=== PATIENT | female | born 1960 | race Two or more races ===

== ENCOUNTER → 2024-11-29 | Outpatient (CLI) | payer MEDICAID, SELFPAY ==
--- NOTE | 2024-11-29 13:01 | XR_ITS ---
Examination: Abdomen AP single view Technique: AP portable supine abdomen, single view Exam date and time: November 29, 2024, 1339 hours INDICATIONS: Epigastric pain beginning 6 months ago. FINDINGS: Moderate stool throughout the colon Mild small bowel ileus left mid abdomen No obstruction No free air IMPRESSION: Mild small bowel ileus
[2024-11-29 14:13] LABS: Collection Type, Urine Clean Catch
[2024-11-29 14:28] LABS: Basophils # (Auto) 0.0 Thou/mm3 (0.0-0.2); Basophils % (Auto) 1 % (0-2.5); Eosinophils # (Auto) 0.1 Thou/mm3 (0.0-0.5); Eosinophils % (Auto) 2 % (0-10); Hematocrit 37.0 % (36.0-46.0); Hemoglobin 12.5 g/dL (12.0-16.0); Immature Granulocytes Auto 0.02 Thou/mm3 (0.00-0.00); Lymphocytes # (Auto) 1.5 Thou/mm3 (1.0-4.8); Lymphocytes % (Auto) 27 % (10-50); Mean Corpuscular HGB Conc 33.8 g/dl (31.0-37.0); Mean Corpuscular Hemoglobin 30.4 pg (25.0-35.0); Mean Corpuscular Volume 90 fL (80-100); Monocytes # (Auto) 0.6 Thou/mm3 (0.0-0.8); Monocytes % (Auto) 11 % (0-12); Neutrophils # (Auto) 3.4 Thou/mm3 (1.8-7.7); Neutrophils % (Auto) 59 % (37-80); Nucleated Red Blood Cell # 0.00 Thou/mm3 (0.00-0.00); Nucleated Red Blood Cell % 0 /100 WBC (0); Platelet Count 209 Thou/mm3 (140-440); RDW Standard Deviation 40.6 fL (36.4-46.3); Red Blood Count 4.11 Miln/mm3 (4.00-5.20); White Blood Count 5.7 Thou/mm3 (3.6-11.0)
[2024-11-29 14:40] LABS: Bilirubin,Urine Negative (Negative); Blood,Urine Negative (Negative); Clarity,Urine Clear (Clear/Hazy); Color,Urine Yellow (Lt Yel-Yel); Glucose, Urine Negative (Negative); Ketones,Urine Negative (Negative); Leukocyte Esterase,Urine Positive (Negative); Nitrite,Urine Negative (Negative); PH,Urine 6.5 (5.0-7.0); Protein,Urine Negative (Neg - Trace); RBC,Urine 2 /hpf (0-3); Specific Gravity,Urine 1.010 (1.001-1.035); Squamous Epithelial Cell,Urine 8 /hpf (0-5); Urobilinogen,Urine Negative mg/dL (0.0-1.0); WBC,Urine 6 /hpf (0-5)
[2024-11-29 14:49] LABS: Alanine Aminotransferase 23 U/L (10-49); Albumin, Serum 4.4 gm/dL (3.4-4.8); Albumin/Globulin Ratio 2.8 (1.2-2.2); Alkaline Phosphatase 86 U/L (46-116); Amylase 51 U/L (30-118); Anion Gap 8 (7-16); Aspartate Amino Transferase 20 U/L (0-34); BUN/Creatinine Ratio 16 Ratio (12-20); Bilirubin,Total 0.5 mg/dL (0.3-1.2); Blood Urea Nitrogen 13 mg/dL (9-23); Calcium 9.7 mg/dL (8.3-10.6); Calcium (Corrected) 9.7 mg/dL (8.5-10.1); Carbon Dioxide 26.7 mMol/L (20.0-31.0); Chloride 105 mMol/L (98-107); Creatinine (Component) 0.8 mg/dL (0.6-1.3); Globulin 1.6 gm/dL (2.3-3.5); Glucose 90 mg/dL (74-106); Lipase 38 U/L (12-53); Osmolality,Calculated 279 (275-295); Potassium 3.9 mMol/L (3.4-5.1); Sodium 140 mMol/L (136-145); Total Protein 6.0 gm/dL (5.7-8.2); eGFR > 60 See Note
== END | disposition home or self-care (01) ==
PROVIDERS: PCP Specialist; Referring Provider Specialist; Visit Provider Radiology Diagnostic Radiology
DX: K56.7 Ileus, unspecified (principal); E78.9 Disorder of lipoprotein metabolism, unspecified; R14.0 Abdominal distension (gaseous); R10.13 Epigastric pain
CPT/HCPCS: 36415; 74018; 80053; 81001; 82150; 83690; 85025

== ENCOUNTER 2024-12-13 14:36 | Inpatient (IN) | payer MEDICAID, SELFPAY ==
[2024-12-13 14:51] VITALS: BP 119/75; PULSE 95; RESP 20; TEMP 36.8; O2SAT 98
--- NOTE | 2024-12-13 15:15 | XR_ITS ---
Examination: CT abdomen with intravenous contrast CT pelvis with intravenous contrast 2-D coronal reconstructions 2-D sagittal reconstructions Date and time of exam:December 13, 2024, 1900 hrs. Indications: Onset generalized abdominal pain today. CTDI: vol (mGy) 8.13 DLP: (mGycm) 471 Technique: Multiple axial sections of the abdomen and pelvis have been obtained. 64 slice high-resolution scanner used. 3 mm axial sections have been obtained, post intravenous injection 60 cc [id number] 2-D sagittal, coronal reconstructions obtained. Low dose protocols were performed. One or more of the following dose reduction techniques were used; automated exposure control, adjustment of the mA and/or KV according to patient size, use of iterative reconstruction technique. Findings: 4 mm pulmonary nodule right middle lobe Mild enlargement cardiac contour No focal liver or splenic lesion No gallstones No pancreatic mass Aorta normal size No common bile duct stones No renal or ureteral calculi, no hydronephrosis Multiple fluid distended small bowel loops especially in the pelvis No pericecal inflammatory change Normal appendix Mild free fluid in the pelvis Urinary bladder intact Absent uterus Impression: Small bowel obstruction pattern, consider Gastrografin small bowel series follow-up
--- NOTE | 2024-12-13 15:15 | EKG_ITS ---
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
--- NOTE | 2024-12-13 15:18 | PD.EDRME ---
Rapid Medical Screening Exam E Arrival date/time: 12/13/24 14:36 64-year-old female with extensive cardiac and GI history reports with complaints of epigastric abdominal pain Chief Complaint: Abdominal Pain Time Seen by Provider: 12/13/24 14:38 Vital signs: Vital Signs Temperature 98.3 F 12/13/24 14:51 Pulse Rate 95 12/13/24 14:51 Respiratory Rate 20 12/13/24 14:51 Blood Pressure 119/75 12/13/24 14:51 Pulse Oximetry (%) 98 12/13/24 14:51 Oxygen Delivery Method Room Air 12/13/24 14:51
[2024-12-13] MEDS: PROMETHAZINE INJ 25 MG/ML VIAL 12.5 MG IM (15:31)
--- NOTE | 2024-12-13 15:39 | PD.EDABDPN ---
ED Abdominal Pain RME/HPI General Chief Complaint: Abdominal Pain Stated complaint: ABD PAIN Time seen by provider: 12/13/24 14:38 Arrival date/time: 12/13/24 14:36 RME / HPI RME / HPI narrative: 64-year-old female with extensive cardiac and GI history reports with complaints of epigastric abdominal pain. Onset of symptoms since early this morning, as worsening epigastric pain, severity moderate, associated with vomiting. Patient denies any fever denies any cough denies any other complaints. Patient told me that he had a history of open heart surgery and 4 stents, 2 stents are not working according to her. Her residential property manager is Dr. Rasheed, patient's GI specialist is Dr. Alcaraz. Related Data Allergies Allergy/AdvReac Type Severity Reaction Status Date / Time No Known Allergies Allergy Verified 12/13/24 14:39 Review of Systems Review of Systems Narrative Review of Systems: Review of system reviewed and within normal limits except mentioned in HPI ED Exam Narrative Physical exam: VITAL SIGNS: Reviewed. GENERAL APPEARANCE: Alert and interactive, follows commands, no acute distress, HEAD AND FACE: Non-traumatic. ENT: PERRL, pink conjunctivitis, eyelid no trauma, Mucous membrane moist. NECK: Supple, nontender, no nuchal rigidity. CHEST: No tenderness, no crepitus, no paradoxical movement, no retractions. LUNGS: Clear, well ventilated, symmetric, no rales, no wheezing, no ronchi, no stridor, good breath sounds bilaterally. HEART: Regular rate, regular rhythm, no murmur, no gallops. ABDOMEN: Soft, positive bowel sounds, nondistended, no guarding, epigastric tenderness., no rebound, no masses, RECTAL: Deferred. GENITAL: Deferred. NEUROLOGICAL: Gross motor function intact sensory function intact, Appropriate for age. MUSCULOSKELETAL: low back nontender, full range of motion. EXTREMITIES: Nontender, full range of motion. SKIN: Color pink, dry, no rash, no lacerations, no abrasions, no contusions. LYMPHATICS: Deferred. Course Quality Measures none Orders Category Date Time Status Admit to Inpatient Status Routine Admission 12/13/24 20:07 Active Patient Condition Routine Admission 12/13/24 20:07 Ordered Aspiration precautions NOW Care 12/13/24 20:08 Active COVID-19 Screening Questionnaire NOW Care 12/13/24 19:36 Active COVID-19 Screening Questionnaire NOW Care 12/13/24 19:[address] Screening NOW Care 12/13/24 15:16 Active Decision to Admit X1 Care 12/13/24 19:41 Completed EKG (ED ONLY) *Do not use* NOW Care 12/13/24 15:15 Completed Insert NG / OG tube NOW Care 12/13/24 20:07 Active NG / OG Tube to LIS NOW Care 12/13/24 19:36 Active NPO NOW Care 12/13/24 20:08 Active Notify provider NEEDED Care 12/13/24 20:07 Active Obtain weight NOW Care 12/13/24 20:07 Active Consult to Gastroenterology Stat Cons 12/13/24 18:41 Ordered Consult to General Surgery Stat Cons 12/13/24 20:10 Ordered Diet NPO (NOW) Diet 12/13/24 20:[address] abdomen pelvis w con Stat Exams 12/13/24 15:15 Completed EKG (ED Only) Stat Exams 12/13/24 15:15 Ordered XR chest 1V Stat Exams 12/13/24 15:45 Completed Amylase Stat Lab 12/13/24 15:33 Completed CBC AM DRAW Lab 12/14/24 05:00 Ordered CBC AM DRAW Lab 12/15/24 05:00 Ordered CBC AM DRAW Lab 12/16/24 05:00 Ordered CBC AM DRAW Lab 12/17/24 05:00 Ordered CBC Stat Lab 12/13/24 15:33 Completed CMP [Comprehensive Metabolic Panel] AM DRAW Lab 12/14/24 05:00 Ordered CMP [Comprehensive Metabolic Panel] AM DRAW Lab 12/15/24 05:00 Ordered CMP [Comprehensive Metabolic Panel] AM DRAW Lab 12/16/24 05:00 Ordered CMP [Comprehensive Metabolic Panel] AM DRAW Lab 12/17/24 05:00 Ordered CMP [Comprehensive Metabolic Panel] Stat Lab 12/13/24 15:33 Completed Magnesium AM DRAW Lab 12/14/24 05:00 Ordered Magnesium AM DRAW Lab 12/15/24 05:00 Ordered Magnesium AM DRAW Lab 12/16/24 05:00 Ordered Magnesium AM DRAW Lab 12/17/24 05:00 Ordered PTT [Partial Thromboplastin Time] Stat Lab 12/13/24 15:33 Completed Phosphorous AM DRAW Lab 12/14/24 05:00 Ordered Phosphorous AM DRAW Lab 12/15/24 05:00 Ordered Phosphorous AM DRAW Lab 12/16/24 05:00 Ordered Phosphorous AM DRAW Lab 12/17/24 05:00 Ordered Troponin I Stat Lab 12/13/24 15:33 Completed UA, C/S IF [Urinalysis, C/S if Indicated] Stat Lab 12/13/24 15:51 Completed Acetaminophen Ivpb [Ofirmev Inj] Med 12/13/24 20:09 Active 1,000 mg in 100 ml IV Q6HR Acetaminophen Tab [Tylenol Tab] Med 12/13/24 20:07 Active 650 mg PO Q6H PRN Dextrose 5%-Ns [D5-Ns] 1,000 ml Med 12/13/24 20:15 Active IV 75 mls/hr Famotidine Inj [Pepcid Inj] Med 12/13/24 15:48 Discontinued 20 mg IVP X1 ONE HYDROmorphone INJ [Dilaudid Inj] Med 12/13/24 20:09 Active 1 mg IVP Q4HR PRN Heparin Inj Med 12/13/24 21:00 Active 5,000 unit SC BID Metoclopramide Inj [Reglan Inj] Med 12/13/24 15:48 Discontinued 10 mg IVP X1 ONE Morphine* Inj Med 12/13/24 20:09 Active 2 mg IVP Q4HR PRN Morphine* Inj Med 12/13/24 15:48 Discontinued 4 mg IVP X1 ONE Ondansetron Inj [Zofran Inj] Med 12/13/24 20:07 Active 4 mg IVP Q6H PRN Pantoprazole Inj [Protonix Inj] Med 12/13/24 20:15 Active 40 mg IVP QDAY Promethazine Inj [Phenergan Inj] Med 12/13/24 15:17 Discontinued 12.5 mg IM X1 ONE Code Status Routine Oth 12/13/24 20:07 Ordered Vital Signs Vital signs: Vital Signs Temperature 98.3 F 12/13/24 14:51 Pulse Rate 95 12/13/24 14:51 Respiratory Rate 12/13/24 14:51 Blood Pressure 119/75 12/13/24 14:51 Pulse Oximetry (%) 98 12/13/24 14:51 Oxygen Delivery Method Room Air 12/13/24 14:51 Abdominal Pain MDM MDM Narrative MDM Narrative:: 64-year-old female with extensive cardiac and GI history reports with complaints of epigastric abdominal pain. Onset of symptoms since early this morning, as worsening epigastric pain, severity moderate, associated with vomiting. Patient denies any fever denies any cough denies any other complaints. Patient told me that he had a history of open heart surgery and 4 stents, 2 stents are not working according to her. Her residential property manager is Dr. Rasheed, patient's GI specialist is Dr. Alcaraz. Patient's workup today all came back unremarkable except for the CT scan of the abdomen pelvis that showed small bowel obstruction. Urinalysis no UTI. Chest x-ray came back unremarkable. NG tube inserted and attached to LIS. Consulted Dr. Alcaraz, GI specialist on-call, who asked me to admit the patient under hospitalist. Hospitalist admitted the patient. Patient data External records reviewed:: None Clinical information provided by:: patient and family Social determinants that could affect healthcare access:: none Patient has the following chronic illnesses:: Hypertension, CAD, status post CABG How is presenting disease/condition affected by chronic disease/condition?: exacerbated by Evaluation data The following diagnostics were reviewed and interpreted by me:: lab results and radiology exam(s) Lab and/or radiology exams considered but not ordered:: None Interpretation Summary: See results MDM Medications / Prescriptions Medications or Prescriptions considered but not ordered:: None Medication administrations:: Medication Administration History Acetaminophen (Acetaminophen 325 Mg Tablet) 650 mg PO Q6H PRN PRN Reason: PAIN SCALE 1-3 (mild Stop: 01/12/25 20:06 Heparin Sodium (Porcine) (Heparin Sod Inj 5000 Unit/Ml Vial) 5,000 unit SC BID [facility] Stop: 12/27/24 20:59 Hydromorphone HCl (Hydromorphone Inj 2 Mg/Ml Vial) 1 mg IVP Q4HR PRN PRN Reason: PAIN SCALE 7-10 Stop: 12/18/24 20:08 Dextrose/Sodium Chloride (D5-Ns) 1,000 mls @ 75 mls/hr IV .[id number] MENDEL Stop: 01/12/25 20:14 Last Admin: 12/13/24 20:40 Dose: 75 mls/hr Documented By: AVIS Acetaminophen (Ofirmev Inj) 1,000 mg in 100 mls @ 250 mls/hr IV Q6HR PRN PRN Reason: Fever >100.4 or Pain 1-3 Morphine Sulfate (Morphine Sulf Inj 4 Mg/Ml Vial) 2 mg IVP Q4HR PRN PRN Reason: PAIN SCALE 4-6 Stop: 12/18/24 20:08 Ondansetron HCl (Ondansetron Inj 2 Mg/Ml Inj 2 Ml) 4 mg IVP Q6H PRN; Protocol PRN Reason: NAUSEA OR VOMITING Stop: 01/12/25 20:06 Pantoprazole Sodium (Pantoprazole Inj 40 Mg Vial) 40 mg IVP QDAY MENDEL Stop: 01/12/25 20:14 Last Admin: 12/13/24 20:39 Dose: 40 mg Documented By: CB Discontinued Medications Famotidine (Famotidine Inj 10 Mg/Ml Vial 2 Ml) 20 mg IVP X1 ONE Stop: 12/13/24 15:49 Last Admin: 12/13/24 17:53 Dose: 20 mg Documented By: FC Metoclopramide HCl (Metoclopramide Inj 5 Mg/Ml Vial 2 Ml) 10 mg IVP X1 ONE; Protocol Stop: 12/13/24 15:49 Last Admin: 12/13/24 17:51 Dose: 10 mg Documented By: FC Morphine Sulfate (Morphine Sulf Inj 4 Mg/Ml Vial) 4 mg IVP X1 ONE Stop: 12/13/24 15:49 Last Admin: 12/13/24 17:48 Dose: 4 mg Documented By: FC Promethazine HCl (Promethazine Inj 25 Mg/Ml Vial) 12.5 mg IM X1 ONE; Protocol Stop: 12/13/24 15:18 Last Admin: 12/13/24 15:31 Dose: 12.5 mg Documented By: OA Morphine, Reglan, Pepcid, Phenergan Consultations Consultation(s) initiated? (list below): Yes Consultation #1 (Physician, Specialty, Details): Dr. Alcaraz, GI specialist on-call. Thank you Diagnosis Differential diagnosis abdominal pain: abdominal pain, gastroenteritis and small bowel obstruction Most likely diagnosis given after review of the tests above:: Small bowel obstruction Admission Indicated Admission indicated?: indicated Admission Request Was there a request for admission?: Yes Admission Attestation Admission request attestation: Discussed case with [Dr Hernandez] from Hospitalist service regarding admission. Discussed patients ED course, exam findings, labs, and radiology results. The Hospitalist [agrees] to accept the patient for admission. Disposition Plan Disposition Plan: Admit Discharge Plan Plan Patient Disposition: Admit Acute Care w/in Hospital Discharge Disposition comment: Stable Problem List Clinical Impression: Small bowel obstruction, Abdominal pain
--- NOTE | 2024-12-13 15:45 | XR_ITS ---
Examination: PA chest single view Technique: Upright PA chest single view Date and time: December 13, 2024, 1618 hrs. Indications: Epigastric pain today with nausea vomiting Findings: Mild prominence left ventricle. CABG. No aspiration pneumonia. No pulmonary edema. Moderate osteopenia Impression: No aspiration pneumonia
[2024-12-13 15:52] LABS: Basophils # (Auto) 0.0 Thou/mm3 (0.0-0.2); Basophils % (Auto) 0 % (0-2.5); Eosinophils # (Auto) 0.0 Thou/mm3 (0.0-0.5); Eosinophils % (Auto) 1 % (0-10); Hematocrit 40.5 % (36.0-46.0); Hemoglobin 13.7 g/dL (12.0-16.0); Immature Granulocytes Auto 0.01 Thou/mm3 (0.00-0.00); Lymphocytes # (Auto) 0.6 Thou/mm3 (1.0-4.8); Lymphocytes % (Auto) 13 % (10-50); Mean Corpuscular HGB Conc 33.8 g/dl (31.0-37.0); Mean Corpuscular Hemoglobin 30.3 pg (25.0-35.0); Mean Corpuscular Volume 90 fL (80-100); Monocytes # (Auto) 0.5 Thou/mm3 (0.0-0.8); Monocytes % (Auto) 11 % (0-12); Neutrophils # (Auto) 3.4 Thou/mm3 (1.8-7.7); Neutrophils % (Auto) 74 % (37-80); Nucleated Red Blood Cell # 0.00 Thou/mm3 (0.00-0.00); Nucleated Red Blood Cell % 0 /100 WBC (0); Platelet Count 162 Thou/mm3 (140-440); RDW Standard Deviation 39.2 fL (36.4-46.3); Red Blood Count 4.52 Miln/mm3 (4.00-5.20); White Blood Count 4.6 Thou/mm3 (3.6-11.0)
[2024-12-13 15:55] LABS: Collection Type, Urine Clean Catch
[2024-12-13 16:03] LABS: Bilirubin,Urine Negative (Negative); Blood,Urine Negative (Negative); Clarity,Urine Clear (Clear/Hazy); Color,Urine Yellow (Lt Yel-Yel); Culture Indicated,Urine Not Indicated; Glucose, Urine Negative (Negative); Ketones,Urine Negative (Negative); Leukocyte Esterase,Urine Negative (Negative); Nitrite,Urine Negative (Negative); PH,Urine 7.0 (5.0-7.0); Protein,Urine Trace (Neg - Trace); RBC,Urine 7 /hpf (0-3); Specific Gravity,Urine 1.022 (1.001-1.035); Squamous Epithelial Cell,Urine 6 /hpf (0-5); Urobilinogen,Urine Negative mg/dL (0.0-1.0); WBC,Urine 4 /hpf (0-5)
[2024-12-13 16:07] LABS: Partial Thromboplastin Time 24.5 Seconds (22.0-36.0)
[2024-12-13 16:13] LABS: Alanine Aminotransferase 10 U/L (10-49); Albumin, Serum 3.9 gm/dL (3.4-4.8); Albumin/Globulin Ratio 1.9 (1.2-2.2); Alkaline Phosphatase 89 U/L (46-116); Amylase 46 U/L (30-118); Anion Gap 9 (7-16); Aspartate Amino Transferase 19 U/L (0-34); BUN/Creatinine Ratio 14 Ratio (12-20); Bilirubin,Total 0.7 mg/dL (0.3-1.2); Blood Urea Nitrogen 10 mg/dL (9-23); Calcium 9.0 mg/dL (8.3-10.6); Calcium (Corrected) 9.1 mg/dL (8.5-10.1); Carbon Dioxide 25.1 mMol/L (20.0-31.0); Chloride 108 mMol/L (98-107); Creatinine (Component) 0.7 mg/dL (0.6-1.3); Estimated Creatinine Clearance 77.7 mL/min (>60); Globulin 2.1 gm/dL (2.3-3.5); Glucose 107 mg/dL (74-106); Osmolality,Calculated 282 (275-295); Potassium 3.8 mMol/L (3.4-5.1); Sodium 142 mMol/L (136-145); Total Protein 6.0 gm/dL (5.7-8.2); Troponin I < 0.002 ng/mL (0.0-0.045); eGFR > 60 See Note
[2024-12-13] MEDS: MORPHINE SULF INJ 4 MG/ML VIAL IVP (17:48)
[2024-12-13] MEDS: METOCLOPRAMIDE INJ 5 MG/ML VIAL 2 ML 10 MG IVP (17:51)
[2024-12-13] MEDS: FAMOTIDINE INJ 10 MG/ML VIAL 2 ML 20 MG IVP (17:53)
[2024-12-13 18:49] VITALS: BP 108/61; PULSE 67; RESP 16; O2SAT 96
[2024-12-13 19:13] VITALS: BP 131/82; PULSE 70; RESP 16; TEMP 36.9; O2SAT 96
[2024-12-13] MEDS: DEXTROSE 5%-NS 1,000 ML 75 ML IV (20:40)
[2024-12-13] MEDS: MORPHINE SULF INJ 4 MG/ML VIAL 2 MG IVP (21:23)
[2024-12-13] MEDS: ONDANSETRON INJ 2 MG/ML INJ 2 ML 4 MG IVP (21:23)
[2024-12-13] MEDS: HEPARIN SOD INJ 5000 UNIT/ML VIAL SC (21:24)
--- NOTE | 2024-12-13 21:30 | XR_ITS ---
Examination: AP chest single view Technique one AP portable upright chest single view Date and time: December 13, 2024, 2147 hrs., Comparison 12/13/2024 1518 hrs. Indications: Post orogastric tube placement Findings: Orogastric tube in stomach satisfactory position CABG Mild enlargement cardiac contour Impression: Orogastric tube in the stomach satisfactory position
--- NOTE | 2024-12-13 21:49 | PD.IMCONS ---
HPI Data of Consult Requesting Physician: Marco Voss MD Primary Care Provider: Chino Colon MD Consult Narrative Reason for consult: Nausea vomiting pain abdomen abnormal CTAP History of present illness: 64 years old female presented to the emergency room with severe abdominal pain and nausea vomiting CT scan of the abdomen pelvis showed in the region of the pelvis pattern consistent with small bowel obstruction Case discussed with the GASK[employer] W[employer]ER/physician anesthesiologist assistant certified in the ER team and the patient was subsequently admitted Also recommended NGT to intermittent suction Patient had multiple episodes of this clinical presentation in the past has been admitted at [facility] She does have a extensive history of coronary artery disease status post PTCA CABG and her pharmacy informaticist is Dr. Rasheed in [place] cc:: cc: Marco Voss MD Review of Systems Review of Systems Systems Reviewed: All systems reviewed, normal except as documented Past Medical History Surgical History OTHER SURGICAL HX: As in the history of present illness Meds Home Medications and Allergies Home Medications ?Medication ?Instructions ?Recorded ?Confirmed ?Type aspirin 81 mg chewable tablet 81 mg PO QDAY 12/14/24 12/14/24 History atorvastatin 80 mg tablet (Lipitor) 80 mg PO QPM 12/14/24 12/14/24 History cholecalciferol (vitamin D3) 75 5,000 unit PO QDAY 12/14/24 12/14/24 History mcg (3,000 unit) tablet furosemide 20 mg tablet (Lasix) 20 mg PO QDAY 12/14/24 12/14/24 History loratadine 10 mg tablet (Claritin) 10 mg PO QDAY PRN allergy symptoms 12/14/24 12/14/24 History metoprolol tartrate 25 mg tablet 25 mg PO QDAY 12/14/24 12/14/24 History omeprazole 20 mg capsule,delayed 20 mg PO QDAY 12/14/24 12/14/24 History release ondansetron HCl 4 mg tablet 4 mg PO TID PRN nausea and vomiting 12/14/24 12/14/24 History ranolazine 1,000 mg 1,000 mg PO BID 12/14/24 12/14/24 History tablet,extended release,12 hr Allergies Allergy/AdvReac Type Severity Reaction Status Date / Time No Known Allergies Allergy Verified 12/13/24 14:39 Exam Vital Signs Temp Pulse Resp BP Pulse Ox O2 Del Method 98.5 F 70 16 131/82 H 96 Room Air 12/13/24 19:13 12/13/24 19:13 12/13/24 19:13 12/13/24 19:13 12/13/24 19:13 12/13/24 19:13 Constitutional Comments: Chronically ill-appearing Routine Respiratory Exam Comments: Normal to auscultation Routine Abdominal Exam Comments: Distended tender no bowel sounds Results Labs 12/14/24 04:28 12/14/24 04:28 Labs: Short CBC 12/13/24 Range/Units 15:33 WBC 4.6 (3.6-11.0) Thou/mm3 Hgb 13.7 (12.0-16.0) g/dL Hct 40.5 (36.0-46.0) % Plt Count 162 D (140-440) Thou/mm3 BMP 12/13/24 15:33 Sodium 142 Potassium 3.8 Chloride 108 H Carbon Dioxide 25.1 BUN 10 Creatinine 0.7 Glucose 107 H Calcium 9.0 Cardiac Enzymes 12/13/24 Range/Units 15:33 Troponin I < 0.002 (0.0-0.045) ng/mL Liver Function 12/13/24 Range/Units 15:33 Total Bilirubin 0.7 (0.3-1.2) mg/dL AST 19 (0-34) U/L ALT 10 (10-49) U/L Alkaline Phosphatase 89 (46-116) U/L Albumin 3.9 (3.4-4.8) gm/dL Urine 12/13/24 Range/Units 15:51 Urine Color Yellow (Lt Yel-Yel) Urine Clarity Clear (Clear/Hazy) Urine pH 7.0 (5.0-7.0) Ur Specific [place] 1.022 (1.001-1.035) Urine Protein Trace (Neg - Trace) Urine Glucose (UA) Negative (Negative) Assessment and Plan Additional Assessment & Plan Additional Plan: # Small bowel obstruction most likely due to abdominal adhesions # Pain abdomen secondary to 1 # Nausea vomiting secondary to 1 Recommendations NGT to intermittent suction N.p.o. IV Protonix Recommend surgical consultation Other medical problems include Coronary artery status post CABG status post post CABG PTCA Hyperlipidemia Essential hypertension Thank you very much for the opportunity to participate in the care of this patient
[2024-12-13 21:58] VITALS: BMI 21.4
--- NOTE | 2024-12-13 22:15 | XR_ITS ---
Examination: Small bowel series AP abdomen 3 views Date and time: December 13, 2024, 10:58 PM Indications: Abdominal pain and distention this week, small bowel obstruction pattern on CT abdomen pelvis 12/13/2024 1700 hrs. Technique And Findings: Patient received 120 cc Gastrografin through the orogastric tube AP portable supine abdomen is 1 minute, 30 minutes, 1 hour obtained Examination demonstrates contrast distended proximal small bowel loops Impression: Dilated small bowel loops, recommend follow-up abdomen film at this time
[2024-12-13 22:20] VITALS: BMI 26.9
[2024-12-14] VITALS (9 sets, daily range): BP systolic 90–150; BP diastolic 58–87; PULSE 59–101; RESP 16–18; TEMP 36.1–37.1; O2SAT 90–96
--- NOTE | 2024-12-14 02:00 | XR_ITS ---
Examination: Abdomen AP single view Technique: AP portable supine abdomen, single view Exam date and time: December 14, 2024, 0159 hrs. Indications: Abdominal distention this week, small bowel obstruction pattern on CT abdomen pelvis 12/13/2024, 3 hour delayed film post small bowel series. Findings: Contrast in the stomach and dilated proximal small bowel loops Impression: Dilated proximal small bowel loops, multiple additional delayed films will be obtained, recommend follow-up films 7:00 AM
--- NOTE | 2024-12-14 02:28 | ESHP_ITS ---
Documentation for date of: 12/14/24 [facility] History of Present Illness History of present illness: This is a 64-year-old female PMHx of CAD, s/p multiple stents and CABG, and hyperlipidemia presenting to the ED with abdominal. Her symptoms started in the morning on the day of admission, she woke up with diffuse abdominal pain associate with nausea and vomiting. Reports several episodes of vomiting mainly stomach content, nonbloody. Since, she has been nauseous, unable to tolerate oral intake. Her last meal was the night before when she consumed a cheeseburger. Never had similar symptoms in the past. Her last bowel movements was the day prior to admission and, was normal, nonbloody. No previous similar symptoms. Denies fever, chills, headaches, fall or trauma, chest pain, shortness of breath, palpitations, diarrhea, dysuria, hematuria, urinary urgency or frequency. She has an extensive cardiac history, underwent stenting of [place] vessels in 2012 with finding of extensive coronary artery disease for which she subsequently underwent CABG. However, she had recurrent chest pain and underwent stenting of transplanted vessels later. She usually doesn't have chest pain but she will complain of left arm pain however she has been symptom-free since her last cardiac intervention. She follows up with Dr. Rasheed in [place] and had negative workup recently. Past Medical History: * As above. Past Surgical History: * Hysterectomy, CABG, multiple cardiac stents. Medications: * ATORVASTATIN, ASPIRIN 81 mg daily, METOPROLOL tartrate 25 mg daily, LASIX 20 mg daily, RANOLAZINE 20 mg BID, OMEPRAZOLE, and other medications (daughter will bring medications tomorrow.) Allergies: * No known allergies. Family History: * Noncontributory. Social History: * Denies alcohol, drug or tobacco use. ED Course: * Afebrile, BP 119/75, HR 95, satting well on room air. * Unremarkable CBC and CMP. * UA negative for UTI. * CT abdomen showed small bowel obstruction. * CXR showed no active disease. Dr. Alcaraz was consulted who recommended admission for p.o. management with NG tube and small bowel series. Reason for admission: Abdominal pain and nausea/vomiting secondary to small bowel obstruction, warranting admission for NG tube suction and GASTROGRAFIN study. Exam Vital Signs Temp Pulse Resp BP Pulse Ox O2 Del Method 98.8 F 86 18 121/70 94 L Room Air 12/14/24 00:11 12/14/24 00:11 12/14/24 00:11 12/14/24 00:11 12/14/24 00:11 12/14/24 00:11 Narrative Exam GENERAL * Normal appearing female, in mild distress secondary to abdominal pain. HEENT * NCAT.?DANAE. Oral mucosa is moist. Patent Nares NECK * Supple, nontender, no JVD. CHEST * RRR, no m/g/r * CTAB, no w/r/r, symmetrical expansion. ABDOMEN * Soft, distended, diffusely tender but to palpation. * No guarding/rebound tenderness/masses. * Bowel sounds presents with decreased. EXTREMITIES * No edema/cyanosis.? SKIN * Warm and dry, no jaundice/rashes. NEUROMUSCULAR * No lumbar or midline, no CVA, no paraspinal muscle spasm or tenderness. * Moves all 4 extremities well, with full ROM and good CSM. * SANCHEZ x4, CN II-XII grossly intact. * No focal neurologic deficits. PSYCHIATRY * Normal mood and affect, cooperative, no SI or HI or hallucinations. Results: Labs 12/14/24 04:28 12/14/24 04:28 Labs: Short CBC 12/13/24 Range/Units 15:33 WBC 4.6 (3.6-11.0) Thou/mm3 Hgb 13.7 (12.0-16.0) g/dL Hct 40.5 (36.0-46.0) % Plt Count 162 D (140-440) Thou/mm3 BMP 12/13/24 15:33 Sodium 142 Potassium 3.8 Chloride 108 H Carbon Dioxide 25.1 BUN 10 Creatinine 0.7 Glucose 107 H Calcium 9.0 Cardiac Enzymes 12/13/24 Range/Units 15:33 Troponin I < 0.002 (0.0-0.045) ng/mL Liver Function 12/13/24 Range/Units 15:33 Total Bilirubin 0.7 (0.3-1.2) mg/dL AST 19 (0-34) U/L ALT 10 (10-49) U/L Alkaline Phosphatase 89 (46-116) U/L Albumin 3.9 (3.4-4.8) gm/dL Urine 12/13/24 Range/Units 15:51 Urine Color Yellow (Lt Yel-Yel) Urine Clarity Clear (Clear/Hazy) Urine pH 7.0 (5.0-7.0) Ur Specific [place] 1.022 (1.001-1.035) Urine Protein Trace (Neg - Trace) Urine Glucose (UA) Negative (Negative) Quality Measures Quality Measures none Medications Home Medications and Allergies Home Medications ?Medication ?Instructions ?Recorded ?Confirmed ?Type aspirin 81 mg chewable tablet 81 mg PO QDAY 12/14/24 0 12/14/24 History atorvastatin 80 mg tablet (Lipitor) 80 mg PO QPM 12/1412/14/24 History cholecalciferol (vitamin D3) 75 5,000 unit PO QDAY 12/14/24 History mcg (3,000 unit) tablet furosemide 20 mg tablet (Lasix) 20 mg PO QDAY 12/14/24 12/14/24 History loratadine 10 mg tablet (Claritin) 10 mg PO QDAY PRN a llergy symptoms 12/14/24 12/14/24 History metoprolol tartrate 25 mg tablet 25 mg PO QDAY 5 12/14/24 History omeprazole 20 mg capsule,delayed 20 mg PO QDAY 5 12/14/24 History release ondansetron HCl 4 mg tablet 4 mg PO TID PRN nausea and vomiting 12/14/24 12/14/24 History ranolazine 1,000 mg 1,000 mg PO BID 12/14/24 History tablet,extended release,12 hr Allergies Allergy/AdvReac Type Severity Reaction Status Date / Time No Known Allergies Allergy Verified 12/13/24 14:39 Visit Medications Acetaminophen (Acetaminophen 325 Mg Tablet) 650 mg PO Q6H PRN PRN Reason: PAIN SCALE 1-3 (mild Stop: 01/12/25 20:06 Heparin Sodium (Porcine) (Heparin Sod Inj 5000 Unit/Ml Vial) 5,000 unit SC BID MENDEL Stop: 12/27/24 20:59 Last Admin: 12/13/24 21:24 Dose: 5,000 unit Hydromorphone HCl (Hydromorphone Inj 2 Mg/Ml Vial) 1 mg IVP Q4HR PRN PRN Reason: PAIN SCALE 7-10 Stop: 12/18/24 20:08 Dextrose/Sodium Chloride (D5-Ns) 1,000 mls @ 75 mls/hr IV .[id number] MENDEL Stop: 01/12/25 20:14 Last Admin: 12/13/24 20:40 Dose: 75 mls/hr Acetaminophen (Ofirmev Inj) 1,000 mg in 100 mls @ 250 mls/hr IV Q6HR PRN PRN Reason: Fever >100.4 or Pain 1-3 Morphine Sulfate (Morphine Sulf Inj 4 Mg/Ml Vial) 2 mg IVP Q4HR PRN PRN Reason: PAIN SCALE 4-6 Stop: 12/18/24 20:08 Last Admin: 12/13/24 21:23 Dose: 2 mg Ondansetron HCl (Ondansetron Inj 2 Mg/Ml Inj 2 Ml) 4 mg IVP Q6H PRN; Protocol PRN Reason: NAUSEA OR VOMITING Stop: 01/12/25 20:06 Last Admin: 12/13/24 21:23 Dose: 4 mg Pantoprazole Sodium (Pantoprazole Inj 40 Mg Vial) 40 mg IVP QDAY [facility] Stop: 01/12/25 20:14 Last Admin: 12/13/24 20:39 Dose: 40 mg Discontinued Medications Famotidine (Famotidine Inj 10 Mg/Ml Vial 2 Ml) 20 mg IVP X1 ONE Stop: 12/13/24 15:49 Last Admin: 12/13/24 17:53 Dose: 20 mg Metoclopramide HCl (Metoclopramide Inj 5 Mg/Ml Vial 2 Ml) 10 mg IVP X1 ONE; Protocol Stop: 12/13/24 15:49 Last Admin: 12/13/24 17:51 Dose: 10 mg Morphine Sulfate (Morphine Sulf Inj 4 Mg/Ml Vial) 4 mg IVP X1 ONE Stop: 12/13/24 15:49 Last Admin: 12/13/24 17:48 Dose: 4 mg Promethazine HCl (Promethazine Inj 25 Mg/Ml Vial) 12.5 mg IM X1 ONE; Protocol Stop: 12/13/24 15:18 Last Admin: 12/13/24 15:31 Dose: 12.5 mg Assessment & Plan Plan This is a 64-year-old female PMHx of CAD, s/p multiple stents and CABG, and hyperlipidemia presenting to the ED with abdominal. Appreciate recommendation from GI and general surgery team. Small bowel obstruction Intractable nausea and vomiting Presents with acute episode of abdominal pain, associated with nausea and vomiting. Unable to tolerate oral intake. Last bowel movement was a day prior to admission and was normal nonbloody. Had afebrile, no leukocytosis. CT abdomen showed small bowel obstruction. Low suspicion for colonic ischemia. Labs and vitals unremarkable. Currently feels nauseous. ? N.p.o., bowel rest ? NG tube intermittent suction ? Continue GASTROGRAFIN study ? Continue D5 NS maintenance at 75 cc/H ? Pending further recommendations for GI and general surgery ? PROTONIX and ANTIEMETICS CAD S/p CABG S/p multiple stents Hyperlipidemia Extensive cardiac history with multiple CABG, multiple stents. Follows up with Dr. Rasheed in [place]. 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 No intervention has been recommended by her enterostomal nurse. Reports last echo showed normal ejection fraction. Currently denies chest pain, left arm pain, shortness of breath, or palpitations. Vitals are unremarkable. ? Continue home METOPROLOL 25 mg daily ? Continue home LASIX 20 mg daily ? Continue home ASPIRIN 81 mg daily ? Continue home ATORVASTATIN 80 mg daily ? Continue home RANOLAZINE 20 mg BID She states she takes another medication for CAD but she does not know the name. Daughter will bring her medication tomorrow in the morning, will resume accordingly. Seasonal allergies ? Continue home LORATADINE 10 mg HS Hx GERD ? Continue PROTONIX as above Health maintenance Diet: NPO GI prophylaxis: PROTONIX DVT prophylaxis: HEPARIN subcu Antibiotics: Not indicated CODE STATUS: Full code Disposition: Admitted for SBO. Case was discussed with attending physician, Dr. Voss. Manoj Hernandez DO PGY II This document was transcribed using voice recognition technology. Minor inaccuracies may be present. Attending Provider Attestation/Addendum Patient seen and examined at bedside with resident. Agree with assessment and plan as dictated above. Patient with extensive cardiac and GI history presents with chief complaint of nausea and vomiting found to have SBO. Will be admitted for further management, small bowel series, surgery consultation. Marco Voss MD
--- NOTE | 2024-12-14 05:00 | XR_ITS ---
Examination: Abdomen AP single view Technique: AP portable supine abdomen, single view Exam date and time: December 14, 2024, 0457 hrs. Indications: Abdominal distention this week, small bowel obstruction pattern on CT abdomen pelvis 12/13/2024, 6 hour delayed film post small bowel series Findings: Contrast in distended small bowel loops However, contrast now present in the colon Impression: Negative for complete small bowel obstruction Recommend follow-up film 8:00 AM
[2024-12-14 05:25] LABS: Basophils # (Auto) 0.0 Thou/mm3 (0.0-0.2); Basophils % (Auto) 0 % (0-2.5); Eosinophils # (Auto) 0.0 Thou/mm3 (0.0-0.5); Eosinophils % (Auto) 0 % (0-10); Hematocrit 40.0 % (36.0-46.0); Hemoglobin 13.3 g/dL (12.0-16.0); Immature Granulocytes Auto 0.01 Thou/mm3 (0.00-0.00); Lymphocytes # (Auto) 0.6 Thou/mm3 (1.0-4.8); Lymphocytes % (Auto) 13 % (10-50); Mean Corpuscular HGB Conc 33.3 g/dl (31.0-37.0); Mean Corpuscular Hemoglobin 30.7 pg (25.0-35.0); Mean Corpuscular Volume 92 fL (80-100); Monocytes # (Auto) 0.8 Thou/mm3 (0.0-0.8); Monocytes % (Auto) 16 % (0-12); Neutrophils # (Auto) 3.5 Thou/mm3 (1.8-7.7); Neutrophils % (Auto) 71 % (37-80); Nucleated Red Blood Cell # 0.00 Thou/mm3 (0.00-0.00); Nucleated Red Blood Cell % 0 /100 WBC (0); Platelet Count 158 Thou/mm3 (140-440); RDW Standard Deviation 40.8 fL (36.4-46.3); Red Blood Count 4.33 Miln/mm3 (4.00-5.20); White Blood Count 4.9 Thou/mm3 (3.6-11.0)
[2024-12-14 05:50] LABS: Alanine Aminotransferase 15 U/L (10-49); Albumin, Serum 3.8 gm/dL (3.4-4.8); Albumin/Globulin Ratio 1.9 (1.2-2.2); Alkaline Phosphatase 80 U/L (46-116); Anion Gap 9 (7-16); Aspartate Amino Transferase 17 U/L (0-34); BUN/Creatinine Ratio 15 Ratio (12-20); Bilirubin,Total 0.9 mg/dL (0.3-1.2); Blood Urea Nitrogen 12 mg/dL (9-23); Calcium 8.8 mg/dL (8.3-10.6); Calcium (Corrected) 9.0 mg/dL (8.5-10.1); Carbon Dioxide 26.0 mMol/L (20.0-31.0); Chloride 109 mMol/L (98-107); Creatinine (Component) 0.8 mg/dL (0.6-1.3); Estimated Creatinine Clearance 67.1 mL/min (>60); Globulin 2.0 gm/dL (2.3-3.5); Glucose 151 mg/dL (74-106); Magnesium 1.9 mg/dL (1.6-2.6); Osmolality,Calculated 289 (275-295); Phosphorous 2.8 mg/dL (2.4-5.1); Potassium 3.4 mMol/L (3.4-5.1); Sodium 144 mMol/L (136-145); Total Protein 5.8 gm/dL (5.7-8.2); eGFR > 60 See Note
--- NOTE | 2024-12-14 08:00 | XR_ITS ---
Examination: Abdomen AP single view Technique: AP portable supine abdomen, single view Exam date and time: December 14, 2024, 0758 hours INDICATIONS: Abdominal pain and distention this week, 9 hour delayed film post small bowel series FINDINGS: Contrast now partly in the colon IMPRESSION: Negative for complete bowel obstruction, no further films are needed
[2024-12-14] MEDS: HEPARIN SOD INJ 5000 UNIT/ML VIAL SC ×2 (08:52→20:45)
[2024-12-14] MEDS: DEXTROSE 5%-NS 1,000 ML 75 ML IV (08:53)
--- NOTE | 2024-12-14 14:48 | ESPR_ITS ---
Documentation for date of: 12/14/24 Subjective Subjective Interval history: This is a 64-year-old female PMHx of CAD, s/p multiple stents and CABG, and hyperlipidemia presenting to the ED with abdominal pain, found to have sbo, started on small bowel series. 12/14/2024: Patient seen and examined at bedside, she is janet speaking, NG tube in place. She completed gastrogaffin small bowel series, and reads indicate that contrast is in the colon. she reports having small bowel movemnt this morning. Started on clears, and tolerated well, without nausea or emesis, d/c ng tube in the afternoon. plan to discharge tomorrow. Exam Vital Signs Temp Pulse Resp BP Pulse Ox O2 Del Method 97.7 F 88 16 90/58 L 95 Room Air 12/14/24 12:00 12/14/24 12:00 12/14/24 12:00 12/14/24 12:00 12/14/24 12:00 12/14/24 12:00 Narrative Exam GENERAL: no acute distress, AAO x3, comfortably laying in bed, HEENT: Head AT/ NC. Mucous membranes moist. PERRL. , NG tube in place. not onsuction NECK: Supple, no lymphadenopathy, no carotid bruits. CARDIOVASCULAR: RRR. Normal S1/S2, No m/r/g. No pitting edema of bilateral LEs. RESPIRATORY: CTAB. No wheezing, rhonchi, crackles. GASTROINTESTINAL: Abdomen soft, mild epigastric tenderness no palpable masses. Bowel sounds present MUSCULOSKELETAL:? No cyanosis or edema, no visible joint swelling. NEUROLOGICAL: CN II-XII grossly intact. No focal deficits. Sensation intact, symmetric. PSYCHIATRIC: Awake and alert, not agitated, normal mood and affect. SKIN: No obvious rashes, no jaundice, normal turgor. Objective Labs 12/14/24 04:28 12/14/24 04:28 Labs: Laboratory Results - last 24 hr 12/13/24 12/13/24 12/14/24 15:33 15:51 04:28 WBC 4.6 4.9 RBC 4.52 4.33 Hgb 13.7 13.3 Hct 40.5 40.0 MCV 90 92 MCH 30.3 30.7 MCHC 33.8 33.3 RDW Std Deviation 39.2 40.8 Plt Count 162 D 158 Neut % (Auto) 74 71 Lymph % (Auto) 13 13 [place] % (Auto) 11 16 H Eos % (Auto) 1 0 Baso % (Auto) 0 0 Neut # (Auto) 3.4 3.5 Lymph # (Auto) 0.6 L 0.6 L [place] # (Auto) 0.5 0.8 Eos # (Auto) 0.0 0.0 Baso # (Auto) 0.0 0.0 Immature Gran # (Auto) 0.01 H 0.01 H Absolute Nucleated RBC 0.00 0.00 Immature Gran % 0 0 Nucleated RBC % 0 0 APTT 24.5 Sodium 142 144 Potassium 3.8 3.4 Chloride 108 H 109 H Carbon Dioxide 25.1 26.0 Anion Gap 9 9 BUN 10 12 Creatinine 0.7 0.8 Estim Creat Clear Calc 77.7 67.1 eGFR > 60 > 60 BUN/Creatinine Ratio 14 15 Glucose 107 H 151 H Calculated Osmolality 282 289 Calcium 9.0 8.8 Corrected Calcium 9.1 9.0 Phosphorus 2.8 Magnesium 1.9 Total Bilirubin 0.7 0.9 AST 19 17 ALT 10 15 Alkaline Phosphatase 89 80 Troponin I < 0.002 Total Protein 6.0 5.8 Albumin 3.9 3.8 Globulin 2.1 L 2.0 L Albumin/Globulin Ratio 1.9 1.9 Amylase 46 Ur Collection Type Clean Catch Urine Color Yellow Urine Clarity Clear Urine pH 7.0 Ur Specific [place] 1.022 Urine Protein Trace Urine Glucose (UA) Negative Urine Ketones Negative Urine Blood Negative Urine Nitrite Negative Urine Bilirubin Negative Urine Urobilinogen (Auto) Negative Ur Leukocyte Esterase Negative Urine RBC 7 H Urine WBC 4 Ur Squamous Epith Cells 6 H Urine Bacteria None Ur Culture Indicated? Not Indicated Quality Measures Quality Measures VTE prophylaxis Assessment & Plan Assessment Current Active Medications: Generic Name Dose Route Start Last Admin Trade Name Freq PRN Reason Stop Dose Admin Acetaminophen 650 mg 12/13/24 20:07 Acetaminophen 325 Mg Tablet PO 01/12/25 20:06 Q6H PRN PAIN SCALE 1-3 (mild Aspirin 81 mg 12/14/24 09:00 12/14/24 08:41 Aspirin Ec 81 Mg Tabec PO 01/13/25 08:59 Not Given QDAY MENDEL Atorvastatin Calcium 80 mg 12/14/24 21:00 Atorvastatin Calcium 20 Mg Tablet PO 01/13/25 20:59 HS MENDEL Furosemide 20 mg 09/25/25 09:00 12/14/24 08:41 Furosemide 20 Mg Tablet PO 01/13/25 08:59 Not Given QDAY MENDEL Heparin Sodium (Porcine) 5,000 unit 12/13/24 21:00 12/14/24 08:52 Heparin Sod Inj 5000 Unit/Ml Vial SC 12/27/24 20:59 5,000 unit BID MENDEL Administration Hydromorphone HCl 1 mg 12/13/24 20:09 Hydromorphone Inj 2 Mg/Ml Vial IVP 12/18/24 20:08 Q4HR PRN PAIN SCALE 7-10 Dextrose/Sodium Chloride 1,000 mls @ 75 mls/hr 12/13/24 20:15 12/14/24 08:53 D5-Ns IV 01/12/25 20:14 75 mls/hr .[id number] MENDEL Administration Acetaminophen 1,000 mg in 100 mls @ 250 mls/hr 12/13/24 20:09 Ofirmev Inj IV Q6HR PRN Fever >100.4 or Pain 1-3 Loratadine 10 mg 12/14/24 03:13 Loratadine 10 Mg Tablet PO 01/13/25 03:12 QDAY PRN allergy symptoms Metoprolol Tartrate 25 mg 12/14/24 09:00 12/14/24 08:42 Metoprolol Tartrate 25 Mg Tablet PO 01/13/25 08:59 Not Given QDAY MENDEL Morphine Sulfate 2 mg 12/13/24 20:09 12/13/24 21:23 Morphine Sulf Inj 4 Mg/Ml Vial IVP 12/18/24 20:08 2 mg Q4HR PRN Administration PAIN SCALE 4-6 Ondansetron HCl 4 mg 12/13/24 20:07 12/13/24 21:23 Ondansetron Inj 2 Mg/Ml Inj 2 Ml IVP 01/12/25 20:06 4 mg Q6H PRN Administration NAUSEA OR VOMITING Protocol Pantoprazole Sodium 40 mg 12/13/24 20:15 12/14/24 08:52 Pantoprazole Inj 40 Mg Vial IVP 01/12/25 20:14 40 mg QDAY MENDEL Administration Ranolazine 1,000 mg 12/14/24 09:00 12/14/24 08:42 Ranolazine 500 Mg [place] (Non Formulary) PO 01/13/25 08:59 Not Given BID MENDEL Plan Ms Roper is a 64-year-old female PMHx of CAD, s/p multiple stents and CABG, and hyperlipidemia presenting to the ED with abdominal pain, nausea and vomiting (with hx of histerectomy) found to have small bowel obstruction, completed gastrogaffin small bowel series and has had BM and tolerating clears, pending discharge tomorrow. Small bowel obstruction 2/2 adhesions- resolved Presents with acute episode of abdominal pain, associated with nausea and vomiting. Unable to tolerate oral intake. Last bowel movement was a day prior to admission and was normal nonbloody. Had afebrile, no leukocytosis. CT abdomen showed small bowel obstruction. Low suspicion for colonic ischemia. Labs and vitals unremarkable. pt reports having bm after completing small bowel series with contrast noted in the colon ? clears, advance diet as tolerated ? PROTONIX and ANTIEMETICS CAD S/p CABG S/p multiple stents Hyperlipidemia Extensive cardiac history with multiple CABG, multiple stents. Follows up with Dr. Rasheed in [place]. 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 No intervention has been recommended by her crown wheel assembler. Reports last echo showed normal ejection fraction. Currently denies chest pain, left arm pain, shortness of breath, or palpitations. Vitals are unremarkable. ? Continue home METOPROLOL 25 mg daily ? Continue home LASIX 20 mg daily ? Continue home ASPIRIN 81 mg daily ? Continue home ATORVASTATIN 80 mg daily ? Continue home RANOLAZINE 20 mg BID She states she takes another medication for CAD but she does not know the name. Daughter will bring her medication tomorrow in the morning, will resume accordingly. Seasonal allergies ? Continue home LORATADINE 10 mg HS GERD ? Continue PROTONIX as above Health maintenance Diet: NPO GI prophylaxis: PROTONIX DVT prophylaxis: HEPARIN subcu Antibiotics: Not indicated CODE STATUS: Full code Disposition: Admitted for SBO, now resolved, advance diet as tolerated Plan discussed with Dr Levin, and Dr. Chuck Lindo MD PGY1 Attending Provider Attestation/Addendum 64-year-old female with multiple comorbidities including hypertension hyperlipidemia status post CAD status post stent placement with subsequent CABG who presented with abdominal pain found to have small bowel obstruction secondary to adhesions. Currently, does have an NG tube in place however did have a bowel movement for which plan to remove the NG tube and start clear liquid diet.I reviewed above note and agree with findings and plans. I have also personally examined the patient with medicine team and went over assessment and plan with medical team including international account executive and resident physician.
[2024-12-14] MEDS: ACETAMINOPHEN 325 MG TABLET 650 MG PO (19:39)
[2024-12-14] MEDS: RANOLAZINE 500 MG TABER (NON FORMULARY) 1000 MG PO (20:42)
[2024-12-14] MEDS: ATORVASTATIN CALCIUM 20 MG TABLET 80 MG PO (20:42)
--- NOTE | 2024-12-14 20:47 | PD.IMPROG ---
Documentation for date of: 12/14/24 Subjective Subjective Interval history: Last x-ray shows contrast in the right colon Exam Vital Signs Temp Pulse Resp BP Pulse Ox O2 Del Method 97.4 F 97 18 150/87 H 96 Room Air 12/14/24 20:00 12/14/24 20:42 12/14/24 20:00 12/14/24 20:42 12/14/24 20:00 12/14/24 20:00 Objective Labs 12/14/24 04:28 12/14/24 04:28 Labs: Laboratory Results - last 24 hr 12/14/24 04:28 WBC 4.9 RBC 4.33 Hgb 13.3 Hct 40.0 MCV 92 MCH 30.7 MCHC 33.3 RDW Std Deviation 40.8 Plt Count 158 Neut % (Auto) 71 Lymph % (Auto) 13 [place] % (Auto) 16 H Eos % (Auto) 0 Baso % (Auto) 0 Neut # (Auto) 3.5 Lymph # (Auto) 0.6 L [place] # (Auto) 0.8 Eos # (Auto) 0.0 Baso # (Auto) 0.0 Immature Gran # (Auto) 0.01 H Absolute Nucleated RBC 0.00 Immature Gran % 0 Nucleated RBC % 0 Sodium 144 Potassium 3.4 Chloride 109 H Carbon Dioxide 26.0 Anion Gap 9 BUN 12 Creatinine 0.8 Estim Creat Clear Calc 67.1 eGFR > 60 BUN/Creatinine Ratio 15 Glucose 151 H Calculated Osmolality 289 Calcium 8.8 Corrected Calcium 9.0 Phosphorus 2.8 Magnesium 1.9 Total Bilirubin 0.9 AST 17 ALT 15 Alkaline Phosphatase 80 Total Protein 5.8 Albumin 3.8 Globulin 2.0 L Albumin/Globulin Ratio 1.9 Impressions Impression: Small bowel obstruction resolving Continue current management Surgical consult I do not think patient needs surgery at the moment but just in case she needs it in the future I want to line up everything Assessment & Plan A&P Narrative # Small bowel obstruction most likely due to abdominal adhesions # Pain abdomen secondary to 1 # Nausea vomiting secondary to 1 Recommendations NGT to intermittent suction N.p.o. IV Protonix Recommend surgical consultation Other medical problems include Coronary artery status post CABG status post post CABG PTCA Hyperlipidemia Essential hypertension Thank you very much for the opportunity to participate in the care of this patient Time Spent With Patient Time: Total time spent is greater than 50% in coordination of care (as documented) at patient's floor/unit and/or counseling patient:
[2024-12-15] VITALS: BP 150/87; PULSE 97; RESP 18; TEMP 36.3; O2SAT 96
[2024-12-15] MEDS: MORPHINE SULF INJ 4 MG/ML VIAL 2 MG IVP (03:55)
[2024-12-15 04:00] VITALS: BP 120/70; PULSE 102; RESP 18; TEMP 36.4; O2SAT 97
--- NOTE | 2024-12-15 07:50 | ESDS_ITS ---
<Statement entered by Chinyere Alanis DO - 12/16/24 07:59> I, Chinyere Alanis DO, attest that I was physically present for the fermin portions of the service and evaluated the patient with the resident and I reviewed and discussed the case with the resident and agree with the resident's findings and plans of care as documented above <Statement entered by Dana Holman MD - 12/15/24 14:59> Note reviewed, I agree with most of its contents and agree with the patient's care as documented by Dr. Lindo. The patient's management plan was discussed with my attending physician Dr. Alanis. Dana Holman, PGY-2 Planned Discharge Date 12/15/24 DS: Providers Provider Date of admission: 12/13/24 20:29 Primary care physician: Chino Colon MD Admitting Provider: Marco Voss MD Attending Provider on Admission: Chinyere Alanis DO Consults: 12/13/24 18:41 Consult to Gastroenterology Stat Comment: Abdominal pain Consulting Provider: Lisette Alcaraz 12/13/24 20:10 Consult to General Surgery Stat Comment: SBO Consulting Provider: Douglas Phillip 12/14/24 20:49 Consult to General Surgery Routine Comment: Consulting Provider: Christiano Seymour Attending Provider on DC: Chinyere Alanis DO Discharging Provider: Chinyere Alanis DO DS: Diagnosis Problem List Completed Was Problem List Reviewed/Reconciled?: Yes Hospital Course Hospital Course Hospital course: Hospital Course 64-year-old female PMHx of CAD, s/p multiple stents and CABG, and hyperlipidemia presenting to the ED with abdominal pain. She has history of recurrent SBOs for which she was primarily treated in [place]. GI and surgery were consulted. She was found to have sbo, started on small bowel series with gastrogaffin, no surgery was indicated. . NG tube was placed and pt was kept NPO with IV fluids. KUBs demonstrated resolution of sbo with contrast noted in the colon. pt endorsed passing gas and several BM.NG tube was removed and patients nausea and abdominal pain resolved. She was able to tolerate diet and was stable and medically cleared for discharge. Discharge instructions Resume previous medications. Light activity is encouraged. Avoid heavy lifting. Attempt light frequent meals. Avoid foods such as raw vegetables, nuts, fried or fatty food. Monitor for worsening symptoms such as recurring abdominal pain, no bowel movements for 2-3 days, or no gas. Return to ED if symptoms worsen. Diagnoses Small bowel obstruction 2/2 adhesions- resolved hx recurrent SBO CAD S/p CABG S/p multiple stents Hyperlipidemia Plan discussed with Dr. Holman, Dr Levin, and Dr. Zeke Lindo MD PGY1 Time Spent with Patient Time attestation: Total time spent providing and/or coordinating discharge services: Time spent: Greater than 30 minutes Exam Vital Signs Temp Pulse Resp BP Pulse Ox O2 Del Method 97.6 F 102 H 18 120/70 97 Room Air 12/15/24 04:00 12/15/24 04:00 12/15/24 04:00 12/15/24 04:00 12/15/24 04:00 12/15/24 04:00 Narrative Exam GENERAL: no acute distress, AAO x3, comfortably laying in bed HEENT: Head AT/ NC. Mucous membranes moist. PERRL NECK: Supple, no lymphadenopathy, no carotid bruits. CARDIOVASCULAR: RRR. Normal S1/S2, No m/r/g. No pitting edema of bilateral LEs. RESPIRATORY: CTAB. No wheezing, rhonchi, crackles. GASTROINTESTINAL: Abdomen soft, mild epigastric tenderness, no palpable masses. Bowel sounds present MUSCULOSKELETAL:? No cyanosis or edema, no visible joint swelling. NEUROLOGICAL: CN II-XII grossly intact. No focal deficits. Sensation intact, symmetric. PSYCHIATRIC: Awake and alert, not agitated, normal mood and affect. SKIN: No obvious rashes, no jaundice, normal turgor. Discharge Plan Plan Patient Disposition: HOME (Self Care) Patient condition on transfer: Stable Prescriptions/Referrals Prescriptions/Med Rec: Continued loratadine [Claritin] 10 mg tablet 10 mg PO QDAY PRN (Reason: allergy symptoms) aspirin 81 mg tablet,chewable 81 mg PO QDAY ondansetron HCl 4 mg tablet 4 mg PO TID PRN (Reason: nausea and vomiting) metoprolol tartrate 25 mg tablet 25 mg PO QDAY omeprazole 20 mg capsule,delayed release(DR/EC) 20 mg PO QDAY atorvastatin [Lipitor] 80 mg tablet 80 mg PO QPM cholecalciferol (vitamin D3) 75 mcg (3,000 unit) tablet 5,000 unit PO QDAY furosemide [Lasix] 20 mg tablet 20 mg PO QDAY ranolazine 1,000 mg tablet extended release 12 hr 1,000 mg PO BID Referrals: Chino Colon MD [Primary Care Provider, Family Practice] Patient/Caregiver Discharge Instructions Other Discharge Activity Instructions:: Resume previous medications. Light activity is encouraged. Avoid heavy lifting. Attempt light frequent meals. Avoid foods such as raw vegetables, nuts, fried or fatty food. Monitor for worsening symptoms such as recurring abdominal pain, no bowel movements for 2-3 days, or no gas. Return to ED if symptoms worsen. Education Materials: Abdominal Pain, Obstruction Intestinal Print Language: Panjabi (Kushal) Stand Alone Forms: Thelma Award Info., Patient Portal Info Letter Discharge Order Discharge Orders: Discharge (Routine); Ordered 12/15/24 Ordered By: Dana Holman Quality Discharge Quality Measures VTE prophylaxis
[2024-12-15 08:00] VITALS: BP 138/72; PULSE 101; RESP 18; TEMP 36.6; O2SAT 98
[2024-12-15 08:59] VITALS: BP 138/72; PULSE 101
[2024-12-15] MEDS: ASPIRIN EC 81 MG TABEC PO (08:59)
[2024-12-15 09:00] VITALS: BP 138/72; PULSE 101
[2024-12-15] MEDS: HEPARIN SOD INJ 5000 UNIT/ML VIAL SC (09:00)
[2024-12-15] MEDS: RANOLAZINE 500 MG TABER (NON FORMULARY) 1000 MG PO (09:00)
[2024-12-15] MEDS: METOPROLOL TARTRATE 25 MG TABLET PO (09:00)
[2024-12-15 09:08] LABS: Basophils # (Auto) 0.0 Thou/mm3 (0.0-0.2); Basophils % (Auto) 0 % (0-2.5); Eosinophils # (Auto) 0.0 Thou/mm3 (0.0-0.5); Eosinophils % (Auto) 0 % (0-10); Hematocrit 35.3 % (36.0-46.0); Hemoglobin 11.6 g/dL (12.0-16.0); Immature Granulocytes Auto 0.00 Thou/mm3 (0.00-0.00); Lymphocytes # (Auto) 0.3 Thou/mm3 (1.0-4.8); Lymphocytes % (Auto) 13 % (10-50); Mean Corpuscular HGB Conc 32.9 g/dl (31.0-37.0); Mean Corpuscular Hemoglobin 30.2 pg (25.0-35.0); Mean Corpuscular Volume 92 fL (80-100); Monocytes # (Auto) 0.4 Thou/mm3 (0.0-0.8); Monocytes % (Auto) 17 % (0-12); Neutrophils # (Auto) 1.7 Thou/mm3 (1.8-7.7); Neutrophils % (Auto) 69 % (37-80); Nucleated Red Blood Cell # 0.00 Thou/mm3 (0.00-0.00); Nucleated Red Blood Cell % 0 /100 WBC (0); Platelet Count 126 Thou/mm3 (140-440); RDW Standard Deviation 41.0 fL (36.4-46.3); Red Blood Count 3.84 Miln/mm3 (4.00-5.20); White Blood Count 2.5 Thou/mm3 (3.6-11.0)
[2024-12-15 09:43] LABS: Alanine Aminotransferase 16 U/L (10-49); Albumin, Serum 3.4 gm/dL (3.4-4.8); Albumin/Globulin Ratio 1.9 (1.2-2.2); Alkaline Phosphatase 66 U/L (46-116); Anion Gap 9 (7-16); Aspartate Amino Transferase 20 U/L (0-34); BUN/Creatinine Ratio 17 Ratio (12-20); Bilirubin,Total 0.6 mg/dL (0.3-1.2); Blood Urea Nitrogen 12 mg/dL (9-23); Calcium 8.9 mg/dL (8.3-10.6); Calcium (Corrected) 9.4 mg/dL (8.5-10.1); Carbon Dioxide 25.9 mMol/L (20.0-31.0); Chloride 108 mMol/L (98-107); Creatinine (Component) 0.7 mg/dL (0.6-1.3); Estimated Creatinine Clearance 76.7 mL/min (>60); Globulin 1.8 gm/dL (2.3-3.5); Glucose 112 mg/dL (74-106); Magnesium 1.8 mg/dL (1.6-2.6); Osmolality,Calculated 285 (275-295); Phosphorous 1.9 mg/dL (2.4-5.1); Potassium 3.4 mMol/L (3.4-5.1); Sodium 143 mMol/L (136-145); Total Protein 5.2 gm/dL (5.7-8.2); eGFR > 60 See Note
--- NOTE | 2024-12-15 09:51 | PD.IMPROG ---
Documentation for date of: 12/15/24 Subjective Subjective Interval history: Patient evaluated No nausea vomiting Tolerating diet Exam Vital Signs Temp Pulse Resp BP Pulse Ox O2 Del Method 97.9 F 101 H 18 138/72 H 98 Room Air 12/15/24 08:00 12/15/24 09:00 12/15/24 08:00 12/15/24 09:00 12/15/24 08:00 12/15/24 08:00 Objective Labs 12/15/24 08:24 12/15/24 08:24 Labs: Laboratory Results - last 24 hr 12/15/24 08:24 WBC 2.5 L D RBC 3.84 L Hgb 11.6 L Hct 35.3 L MCV 92 MCH 30.2 MCHC 32.9 RDW Std Deviation 41.0 Plt Count 126 L D Neut % (Auto) 69 Lymph % (Auto) 13 Hanson % (Auto) 17 H Eos % (Auto) 0 Baso % (Auto) 0 Neut # (Auto) 1.7 L Lymph # (Auto) 0.3 L Hanson # (Auto) 0.4 Eos # (Auto) 0.0 Baso # (Auto) 0.0 Immature Gran # (Auto) 0.00 Absolute Nucleated RBC 0.00 Immature Gran % 0 Nucleated RBC % 0 Sodium 143 Potassium 3.4 Chloride 108 H Carbon Dioxide 25.9 Anion Gap 9 BUN 12 Creatinine 0.7 Estim Creat Clear Calc 76.7 eGFR > 60 BUN/Creatinine Ratio 17 Glucose 112 H Calculated Osmolality 285 Calcium 8.9 Corrected Calcium 9.4 Phosphorus 1.9 L Magnesium 1.8 Total Bilirubin 0.6 AST 20 ALT 16 Alkaline Phosphatase 66 Total Protein 5.2 L Albumin 3.4 Globulin 1.8 L Albumin/Globulin Ratio 1.9 Impressions Impression: Small bowel obstruction resolved Okay to discharge patient home to be followed by me as an outpatient Assessment & Plan A&P Narrative # Small bowel obstruction most likely due to abdominal adhesions # Pain abdomen secondary to 1 # Nausea vomiting secondary to 1 Recommendations NGT to intermittent suction N.p.o. IV Protonix Recommend surgical consultation Other medical problems include Coronary artery status post CABG status post post CABG PTCA Hyperlipidemia Essential hypertension Thank you very much for the opportunity to participate in the care of this patient Time Spent With Patient Time: Total time spent is greater than 50% in coordination of care (as documented) at patient's floor/unit and/or counseling patient:
[2024-12-15] MEDS: NAPH,KPH MBDB 1 PACKET (1.5 GM) PO (10:28)
[2024-12-15] MEDS: Magnesium Sulfate 4 GM Ivpb 4 GM/50 ML BAG IV (10:30)
[2024-12-15] MEDS: BENZONATATE 100 MG CAPSULE PO (11:04)
[2024-12-15 11:34] VITALS: BP 104/61; PULSE 88; RESP 18; TEMP 36.8; O2SAT 92
== END 2024-12-15 15:31 | disposition home or self-care (01) | DRG 247 ==
LOC: SERX 16:25 → SERHOLD 20:34 → S3NX 22:15
PROVIDERS: Nurse Practitioner Family; Physician Assistant; Admitting Provider Student in an Organized Health Care Education/Training Program; Emergency Provider Emergency Medicine; PCP Family Medicine; Visit Provider Internal Medicine
DX: K56.50 Intestinal adhesions [bands], unspecified as to partial versus complete obstruction (principal); Z95.1 Presence of aortocoronary bypass graft; E78.5 Hyperlipidemia, unspecified; Z95.5 Presence of coronary angioplasty implant and graft; I25.10 Atherosclerotic heart disease of native coronary artery without angina pectoris; J30.2 Other seasonal allergic rhinitis; K21.9 Gastro-esophageal reflux disease without esophagitis; I10 Essential (primary) hypertension; Z79.82 Long term (current) use of aspirin; Z79.899 Other long term (current) drug therapy; Z90.710 Acquired absence of both cervix and uterus
CPT/HCPCS: 36415; 71045; 74018; 74177; 74250; 80053; 81001; 82150; 83735; 84100; 84484; 85025; 85730; 93005; 96361; 96372; 96374; 96375; 96376; 99285; A4649; J1644; J2270; J2405; J2470; J2550; J2765; J3475; J3490; J7042; Q9963; Q9967; A9270